=== PATIENT | male | born 1985 | race Hispanic/Latino ===

== ENCOUNTER 2016-11-20 15:34 | Emergency (ER) | payer OTHER ==
[~2016-11-20] VITALS: Ht 165.1 cm; Wt 86.2 kg
[2016-11-20] MEDS ORDERED: IBUPROFEN800 MG PO (17:06)
[2016-11-20] MEDS ORDERED: OXYCODONE HCL5 M1 PO (17:06)
== END 2016-11-20 17:19 | disposition home or self-care (01) ==
LOC: ED 15:34
DX: R10.9 Unspecified abdominal pain (principal)
CPT/HCPCS: 80053; 81001; 83690; 85025; 96374; 99283; J1885